=== PATIENT | male | born 1960 | race Hispanic/Latino ===

== ENCOUNTER 2022-12-29 19:29 | Emergency (ER) | payer OTHER, MEDICARE ==
[~2022-12-29] VITALS: Ht 172.7 cm; Wt 78.5 kg
[2022-12-29 19:34] VITALS: O2SAT 97
[2022-12-29 19:35] VITALS: BP 187/83; PULSE 61; RESP 18
== END 2022-12-29 20:08 | disposition home or self-care (01) ==
LOC: EDH 19:29
DX: H54.7 Unspecified visual loss (principal); E78.00 Pure hypercholesterolemia, unspecified; M19.90 Unspecified osteoarthritis, unspecified site
CPT/HCPCS: 99281

== ENCOUNTER → 2024-11-01 | Outpatient (CLI) | payer OTHER, MEDICAID ==
--- NOTE | 2024-11-01 10:46 | HMCIMG ---
Exam Type: abdomen supine tomograms Tomogram planes done Clinical Information: CALCULUS OF KIDNEY Comparison: None. Findings: Examination demonstrates a left renal lower pole calculus measuring 9 to 10 mm and an upper pole calculus measuring 12 mm. No additional sites of nephrolithiasis is noted. The limited visualization of the rest of the abdomen structures is unremarkable. IMPRESSION: Left nephrolithiasis.
--- NOTE | 2024-11-01 13:02 | HMCIMG ---
Exam Type: ABD 1VW Clinical Information: CALCULUS OF KIDNEY Comparison: None Findings: Abdomen demonstrates no evidence of pathologic calcification or soft tissue mass. Left renal upper and lower pole nephrolithiasis seen, best appreciated and concomitant tomograms. The intestinal gas pattern is within normal limits without evidence of dilatation to suggest obstruction or adynamic ileus. The bony structures are unremarkable. IMPRESSION: Left renal upper and lower pole nephrolithiasis seen, best appreciated and concomitant tomograms.
== END | disposition home or self-care (01) ==
LOC: RAH 09:36
PROVIDERS: ATTEND Urology
DX: N20.0 Calculus of kidney (principal)
CPT/HCPCS: 74018; 76100

== ENCOUNTER 2024-11-19 10:07 | Day surgery (SDC) | payer OTHER, MEDICAID ==
[2024-11-17 09:49] LABS: APPEARANCE,URINE CLEAR (CLEAR); BILIRUBIN,URINE NEGATIVE (NEGATIVE); COLOR,URINE YELLOW (YELLOW); GLUCOSE, URINE (UA) NEGATIVE (NEGATIVE); KETONES,URINE NEGATIVE (NEGATIVE); LEUKOCYTE ESTERASE ,URINE NEGATIVE Leu/uL (NEGATIVE); NITRATE,URINE NEGATIVE (NEGATIVE); OCCULT BLOOD,URINE MODERATE (NEGATIVE); PROTEIN,URINE 10 mg/dL (NEGATIVE); UROBILINOGEN,URINE 0.2 mg/dL (0.2-1.0)
[2024-11-17 09:52] LABS: ADD UA MICROSCOPIC YES
[2024-11-17 09:56] LABS: INR 1.03 (0.85-1.15); PROTHROMBIN TIME 10.9 SEC (9.6-11.6)
[2024-11-17 09:57] LABS: PARTIAL THROMBOPLASTIN TIME 30.2 SEC (26.3-35.5)
[2024-11-17 10:01] LABS: BASOPHILS # (AUTO) 0.02 K/uL (0.00-0.20); BASOPHILS % (AUTO) 0.2 % (0.0-5.0); EOSINOPHILS # (AUTO) 0.12 K/uL (0.00-0.70); HEMATOCRIT 41.6 % (42-54); IMMATURE GRANULOCYTE ABSOLUTE 0.03 K/uL (0-1); LYMPHOCYTES % (AUTO) 40.4 % (21.0-51.0); MEAN CORPUSCULAR HEMOGLOBIN 30.8 pg (27.0-33.0); MEAN CORPUSCULAR HGB CONC 33.7 g/dL (32.0-36.0); MEAN CORPUSCULAR VOLUME 91.6 fL (79-99); MONOCYTES # (AUTO) 0.6 K/uL (0.1-1.0); NEUTROPHILS # (AUTO) 6.6 K/uL (1.8-7.7); NEUTROPHILS % (AUTO) 53.2 % (40.0-77.0); PLATELET COUNT (AUTO) 130 K/uL (130-400); RED BLOOD CELL COUNT(AUTO) 4.54 MIL/uL (4.50-6.20); WHITE BLOOD COUNT (AUTO) 12.3 K/uL (4.8-10.8)
[2024-11-17 10:02] LABS: MUCUS,URINE RARE LPF (None Seen); RBC,URINE 51-100 /HPF (0-1); SQUAMOUS EPITHELIAL CELL,UR RARE /HPF (0-2)
[2024-11-17 10:03] LABS: ALBUMIN 3.8 g/dL (3.5-5.0); BILIRUBIN,TOTAL 0.7 mg/dL (0.2-1.0); CREATININE 0.8 mg/dL (0.5-1.3); POTASSIUM 5.1 mmol/L (3.5-5.1); TOTAL PROTEIN, SERUM 7.7 g/dL (6.0-8.3)
[2024-11-17 10:12] VITALS: BP 149/72; PULSE 53; RESP 18; TEMP 98.1
--- NOTE | 2024-11-17 10:18 | EKG ---
[facility] Test Date: 2024-11-17 Test Time: 10:15:37 Pat Name: IKER CORDERO Department: [facility] Room: [facility] Gender: M [employer]: [id number] : 1960 Requested By: BLAZE DELACRUZ Order Number: [id number] Reading MD: Rafael Jade Measurements Intervals [place] Rate: 51 P: 33 DE: 80 QRS: 14 QRSD: 86 T: 62 QT: 444 QTc: 409 Interpretive Statements Sinus bradycardia with short DE No previous ECG available for comparison Electronically Signed On 11-19-2024 10:09:33 CDT by Rafael Jade Please click the below link to view image of tracing.
--- NOTE | 2024-11-17 11:18 | HMCIMG ---
CHEST 2VWS HISTORY: Preop COMPARISON: None FINDINGS: Frontal and lateral projections of the chest were obtained. There is no acute pulmonary infiltrates or failure. The heart is not enlarged. No evidence of aortic calcification is seen. Degenerative changes are seen of the thoracolumbar spine. IMPRESSION: 1. No acute pulmonary infiltrates.
--- NOTE | 2024-11-17 11:24 | HMCIMG ---
ABD 1VW HISTORY: Preop COMPARISON: None FINDINGS: A frontal projection of the abdomen was obtained. Minimal small bowel dilatation is seen. Fecal material is seen in the colon. Degenerative changes of the thoracolumbar spine are noted. IMPRESSION: 1. Mild small bowel dilatation. Large amount of fecal material is seen.
--- NOTE | 2024-11-17 11:24 | HMCIMG ---
TOMOGRAM REASON: PRE OP. COMPARISON: 11/01/2024 TECHNIQUE: Tomogram images of the kidneys were obtained. FINDINGS: Left renal pelvic stone is seen measuring 10.6 mm unchanged. IMPRESSION: Left renal pelvic stone.
--- NOTE | 2024-11-18 09:10 | HP ---
PROPOSED DATE OF SURGERY: 11/19/2024. CHIEF COMPLAINT: Left-sided mid pole and lower pole kidney stone is repaired. HISTORY OF PRESENT ILLNESS: A 63-year-old male with left-sided kidney stones, left mid pole and lower pole, scheduled for extracorporeal shockwave lithotripsy of mid pole kidney stone, left side. Risks, benefits, and alternatives and potential complications were reviewed with the patient. No guarantees were given. Did request ____ provide full informed consent. ALLERGIES: None. MEDICATIONS: Atorvastatin, lactulose, lisinopril, and metformin. PAST SURGICAL HISTORY: Rotator cuff surgery and cataract surgery bilaterally. PAST MEDICAL HISTORY: Significant for gout, osteoporosis, hyperlipidemia, type 2 diabetes. FAMILY HISTORY: Negative for kidney stones. SOCIAL HISTORY: , 3 children. He does not smoke or drink. He is retired. REVIEW OF SYSTEMS: He has no shortness of breath, no chest pain. His appetite is good. No nausea, no vomiting, constipation or diarrhea. No headaches, dizziness or nosebleeds. No joint pain, no swelling, limitation of movement, night sweats, fever, chills, or skin rash. PHYSICAL EXAM: GENERAL: This is an alert male, in no distress. HEENT: Head atraumatic and normocephalic. Pupils are equal and reactive to light and accommodation. Extraocular movements are intact. No discharge from ears, nose or throat. CHEST: Lung patel are clear to auscultation. HEART: Sounds are best heard in the fifth intercostal space. ABDOMEN: Full, soft, and nontender. BACK: No CVA tenderness. EXTERNAL GENITALIA: Deferred. RECTAL: Deferred. EXTREMITIES: Show no cyanosis, clubbing, or edema. NEUROLOGIC: The patient is awake, alert, and oriented x 3. Cranial nerves are grossly intact. No gross motor and sensory deficits. IMPRESSION: Left-sided kidney stones, mid pole and upper pole measuring 5 x 6 mm and the proposed surgical procedure is that of left-sided extracorporeal shockwave lithotripsy of mid pole kidney stone, for which the patient provided full informed consent in a staged planned fashion and the second stone will be treated in the secondary setting. No guarantees are given. TID: [id number] RECEIPT: [id number]
--- NOTE | 2024-11-18 15:02 | NUR ---
REPORT REPORTED CBC TO DR DELACRUZ/ALLYSSA. REVIEWED AND OK TO PROCEED. DR DOTY INFORMED ABOUT EKG. WILL WAIT FOR RESPONSE Addendum: 11/18/24 at 1630 by JOVANA GUARDADO RN RN NO NEW ORDERS RECEIVED FROM DR DOTY
[~2024-11-19] VITALS: Ht 172.7 cm; Wt 63.7 kg
[2024-11-19] VITALS (17 sets, daily range): BP systolic 113–147; BP diastolic 54–70; PULSE 51–69; RESP 14–20; TEMP 97.3–97.9
[~2024-11-19 10:07] MED LIST: ATOR40TA71 PO; IBRU140C PO; IBUP-2070 PO; LISI10TA24 PO; METF-444 PO; ZOSYN 3.375GM+NS 50ML 50 ML IVPB SCH
[2024-11-19] MEDS ORDERED: 0.9%NACL 1000ML 1,000 ML IV ONE (11:03)
[2024-11-19] MEDS ORDERED: ZOSYN 3.375GM+NS 50ML 50 ML ONE (11:03)
[2024-11-19] MEDS ORDERED: LIDOCAINE PF 100MG/5ML (2%) SYRINGE 5ML ONE (11:58)
[2024-11-19] MEDS ORDERED: MIDAZOLAM HCL 1 MG/ML 2ML VIAL ONE (11:59)
[2024-11-19] MEDS ORDERED: FENTanyl CITRate PF 50 MCG/1 ML 2ML VIAL ONE (11:59)
[2024-11-19] MEDS ORDERED: proPOFol 10 MG/ML 20ML VIAL IV ONE (11:59)
[2024-11-19] MEDS ORDERED: ondanSETRON 4MG INJ ONE (12:01)
[2024-11-19] MEDS ORDERED: ketOROlac 30MG VIAL (30MG/ML) ONE (12:01)
[2024-11-19] MEDS ORDERED: ePHEDrine SULFate 50 MG/ML AMPULE ONE (12:11)
--- NOTE | 2024-11-19 15:10 | NUR ---
PATIENT DISCHARGED FROM FACILITY FROM FACILITY VIA WHEELCHAIR BY KISHA CALIX AND ASSISTED INTO PRIVATE VEHICLE DRIVEN BY SPOUSE
--- NOTE | 2024-11-19 16:59 | OP ---
DATE OF PROCEDURE: 11/19/2024 PREOPERATIVE DIAGNOSIS: Left-sided kidney stones. PROCEDURE PERFORMED: Left-sided extracorporeal shockwave lithotripsy, 2500 shocks, 24 kV, 1 shock per second. POSTOPERATIVE DIAGNOSIS: Left-sided kidney stones. ANESTHESIA: General. COMPLICATIONS: None. DRAINS: None. INDICATIONS FOR PROCEDURE: This is a 63-year-old male with left-sided kidney stone measuring 6 x 5 mm in mid pole. He has a 5 x 5 mm upper pole stone as well scheduled for fragmentation of a mid pole kidney stone on the left-hand side. DESCRIPTION OF PROCEDURE: Risks, benefits, alternatives, potential complications, indications reviewed carefully with the patient. His questions were answered. He did request and did provide full informed consent. FINDINGS: Those of a 6 x 5 mm left-sided mid pole kidney stone. DESCRIPTION OF PROCEDURE: The patient was duly identified, informed consent was confirmed. Timeout was taken. The patient was then brought to the operating room and placed on the operating room table. After adequate hemodynamic monitoring had been established by Anesthesiology, the patient underwent smooth induction of general anesthesia by Anesthesiology. He was placed in a supine position on the lithotripsy gurney. Next C-arm was then brought into the field. The stone was identified, placed in F2. The shock head is brought up to his flank on the left side. Stone is placed at the F2 focal point and fragmentation of the stone was then performed, 2500 shocks, 24 kV 1 shock per second. Satisfactory fragmentation with partial pulverization was identified at the end of the procedure on fluoroscopy. The patient tolerated the procedure well with no complications. The patient was awakened from anesthesia and was now transferred from the operating room to recovery room in good stable and hemodynamically satisfactory condition having experienced no complications. TID: [id number] RECEIPT: [id number]
== END 2024-11-19 15:10 | disposition home or self-care (01) ==
LOC: DAH 10:07
PROVIDERS: ATTEND Urology
DX: N20.0 Calculus of kidney (principal); E11.9 Type 2 diabetes mellitus without complications; E78.5 Hyperlipidemia, unspecified; M81.0 Age-related osteoporosis without current pathological fracture; M10.9 Gout, unspecified; Z98.890 Other specified postprocedural states; Z98.42 Cataract extraction status, left eye; Z98.41 Cataract extraction status, right eye; Z79.01 Long term (current) use of anticoagulants; Z79.899 Other long term (current) drug therapy
CPT/HCPCS: 80053; 85025; 85610; 85730; 87086; 81001; 36415; 74018; 71046; 76100; 93005; 50590; 82948; A6260; J1885; A4663; J3010; J7030; J2003; J3490; J2250; J2704; J2405; J2543; A4215; A4213; A4222; A4221; A4216; A4223 ×3; A4600

== ENCOUNTER → 2024-12-01 | Outpatient (CLI) | payer OTHER, MEDICAID ==
[~2024-12-01] MED LIST changes: -ZOSYN 3.375GM+NS 50ML 50 ML IVPB SCH
--- NOTE | 2024-12-01 20:31 | HMCIMG ---
EXAM: Tomogram Abdomen (KUB), 6 views. CLINICAL HISTORY: Renal calculus. COMPARISON: CT abdomen and pelvis dated 09/10/2024. FINDINGS: 2.7 cm calcification is evident on the right side, partially overlying the right renal shadow, which corresponds with an exophytic perinephric calcification when compared with the prior CT abdomen and pelvis dated 09/10/2024. 1.1 cm calcification is evident around the left renal midpole. Nonobstructed nonspecific bowel gas pattern. No free air is evident. No aggressive appearing osseous lesion. IMPRESSION: 2.7 cm calcification is evident on the right side, partially overlying the right renal shadow, which corresponds with an exophytic perinephric calcification when compared with the prior CT abdomen and pelvis dated 09/10/2024. A 1.1 cm calcification along the left renal midpole. On comparison with the prior CT abdominal pelvis dated 09/10/2024, there is an interval decrease in the number of bilateral renal calculi. Recommend CT abdomen and pelvis with stone protocol for an optimal evaluation. /[place]
--- NOTE | 2024-12-01 20:50 | HMCIMG ---
EXAM: CR Abdomen, 1 view. CLINICAL HISTORY: Renal calculus. COMPARISON: CT abdomen and pelvis dated 09/10/2024. FINDINGS: 2.7 cm calcification is evident on the right side, partially overlying the right renal shadow, which corresponds with an exophytic perinephric calcification when compared with the prior CT abdomen and pelvis dated 09/10/2024. 1.1 cm calcification is evident around the left renal midpole. Presumed tiny pelvic phleboliths. A component of moderate to severe constipation is present in the colon, limit the optimal evaluation. No free air is evident. No aggressive appearing osseous lesion. IMPRESSION: 2.7 cm calcification is evident on the right side, partially overlying the right renal shadow, which corresponds with an exophytic perinephric calcification when compared with the prior CT abdomen and pelvis dated 09/10/2024. A 1.1 cm calcification along the left renal midpole. A component of moderate to severe constipation is present in the colon, limit the optimal evaluation. On comparison with the prior CT abdominal pelvis dated 09/10/2024, there is an interval decrease in the number of bilateral renal calculi. Recommend CT abdomen and pelvis with stone protocol for an optimal evaluation. /[place]
== END | disposition home or self-care (01) ==
LOC: RAH 09:12
PROVIDERS: ATTEND Urology
DX: N20.0 Calculus of kidney (principal); K59.00 Constipation, unspecified; N28.89 Other specified disorders of kidney and ureter; Z87.442 Personal history of urinary calculi
CPT/HCPCS: 74018; 76100